=== PATIENT | female | born 1960 ===

== ENCOUNTER 2025-02-02 13:35 | Outpatient (AMB) | payer MEDICARE, MEDICAID, SELFPAY ==
--- NOTE | 2025-02-02 13:52 | MHC.OFFVIS ---
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 As she was on Xarelto, TNK/tPA not given and she was taken to clinical laboratory director where she had partial recanalization. Weakness has improved. She is presenting for a neurological evaluation. Her medical history includes chronic traumatic encephalopathy, with persistent issues of urinary incontinence over several years. The disease has affected her ability to write, which ceased years ago, indicating potential cognitive or motor impairment. Additionally, atrial fibrillation was mentioned, although not the main focus of this visit. Review of Systems Const Details: - Neurological: Reports difficulty with writing; chronic traumatic encephalopathy - Genitourinary: Reports urinary incontinence - Cardiovascular: Reports atrial fibrillation Physical Exam Neuro Other: Mental Status: She is alert and awake with slightly decreased fluency of speech. She is able to read simple words and repeat simple sentences. Cranial Nerves: CN II: Visual blancas full to confrontation, visual acuity intact. CN III, IV, : Pupils equal, round, reactive to light and accommodation. Extraocular movements are normal. CN V: Facial sensation is normal. CN VII: Facial movements symmetrical. CN VIII: Hearing intact to bedside conversation is normal. CN IX, X: Palate elevates symmetrically. CN XI: Shoulder shrug and head turn symmetrical. CN XII: Tongue midline without atrophy or fasciculations. Motor: No pronator drift. Gait: No significant abnormality. Extrapyramidal: Full facial expressions and blinking. No rigidity. Movements are appropriate with no tremor or abnormality. Speech: Slightly dysphasic. 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 She had left hemiparesis from an embolic right middle cerebral artery lesion that was treated with intra-arterial recanalization at [facility] in January of 2024. Now she was maintained on Eliquis. There was no acute or new neurological symptoms. I would recommend continuing follow-up with primary care physician/revenue research analyst. If any neurological problem appears, she could be re-evaluated in this office. Coding Level of Care Code Est Pt Level 4 (49831) Diagnoses Cerebral infarction due to embolism of right middle cerebral artery I63.411 Cerebral infarction mechanism: embolism Precerebral and cerebral artery: middle cerebral artery Laterality of affected vessel: right Chronic static encephalopathy G93.49
== END 2025-02-02 14:03 | disposition home or self-care (01) ==
LOC: HO.HSM 13:35
PROVIDERS: PCP Family Medicine; Referring Provider Family Medicine; Visit Provider Psychiatry & Neurology Neurology
DX: I63.411 Cerebral infarction due to embolism of right middle cerebral artery (principal); G93.49 Other encephalopathy
CPT/HCPCS: 99214

== ENCOUNTER → 2025-02-02 13:35 | Outpatient (BNVA) | payer MEDICARE, MEDICAID, SELFPAY | PROVIDERS: PCP Family Medicine; Referring Provider Family Medicine; Visit Provider Psychiatry & Neurology Neurology | DX: I63.411 Cerebral infarction due to embolism of right middle cerebral artery (principal); G93.49 Other encephalopathy | CPT/HCPCS: 99212 ==